=== PATIENT | male | born 1965 | race Caucasian/White ===

== ENCOUNTER 2021-03-29 18:40 | Observation (INO) | payer OTHER ==
[~2021-03-29] VITALS: Ht 177.8 cm; Wt 127.0 kg
--- NOTE | ~2021-03-29 | EMS ---
[address] [address] EMS Patient Care Report Name: FORTUNATO PEREZ Room #: 170-5 ADM IN M.R.#: [id number] Admission: 03/29/21 Attend Phys: Cory Payne MD Discharge: Date of : 63 Report #: [id number] THIS REPORT FOR: //name// Report Transmitted: 03/29/2021 19:46 EMS Care Summary [facility] Incident [id number] @ 03/29/2021 17:27 Incident Location [address] [place] [address] Patient FORTUNATO PEREZ Male, 55 Years 1965 Patient Address [address] [place] [address] Patient History Hypertension (HTN),Edema,Back Pain (Chronic),Back Surgery, Patient Allergies No known allergies, Patient Medications Spironolactone, Hydrochlorothiazide (Hctz), Cyclobenzaprine, Potassium, Lasix, Metoprolol, Chief Complaint Right hip pain Disposition Transported No Lights/Champion Dispatch Reason Falls Transported To [facility] Narrative C - Right lateral hip discomfort. H - [id number] was dispatched to a local residences on a C1 fall. [id number] arrived on [facility] [address] [place] [address] EMS Patient Care Report Name: FORTUNATO PEREZ Room #: 170-5 ADM IN M.Juan.#: [id number] Admission: 03/29/21 Attend Phys: Cory Payne MD Discharge: Date of : 63 Report #: [id number] scene to find Mr. Perez a 55 y/o male patient found lying on his left side in a narrow hallway. Mr. Perez was found in [facility] and able to speak in full and complete sentences upon our arrival. The patient had complaint of severe right hip pain after an incident while walking down the [place]. Mr. Perez reported that he got up and was walking down the [place] when he felt his right hip (femoral head) pop out and caused him to fall. The patient denied any other associated injury which includes neck, back, or head injuries, and he also denied any loss of consciousness due to this event. The patient was able to rate his discomfort at an 8 initially and reported that it would go to a 10/10 with any movement or palpation. The patient reported that he has an extensive back and neuropathy hx. but this event did not worsen any of his numbness or tingling. Ms. Perez denied any previous injury to his hip or leg, and he also denied any previous hip surgeries. The patient denied any other recent illness or injury. R - Initial assessment, physical examination, V/s, IV access, Fentanyl administration, pt. rolled onto the tarp and moved to stretcher, V/s, Fentanyl administration, continued reassessment. T - The patient reported a large relief in his pain management during transport. No change was noted in the patient's V/s or presentation during transport. The patient was moved over into bed in ED via sheet drag without incident with report given to ED RN. Initial Vitals @18:22P: 95,SpO2: 90, @18:11P: 94,R: 14,BP: 130/86,Pain: 5/10,GCS: 15,SpO2: 94,Revised Trauma: 12, @18:26P: 92,R: 15,BP: 101/44,Pain: 3/10,GCS: 15,SpO2: 93,Revised Trauma: 12, @PTAP: 92,R: 18,BP: 99/68,Pain: 8/10,GCS: 15,Temp: 98.3F,SpO2: 94,Revised Trauma: 12, Impression Injury of Hip Procedures @18:14 Fentanyl - 100 Micrograms (mcg) - Intravenous (IV) Response: Improved @17:58 Fentanyl - 100 Micrograms (mcg) - Intravenous (IV) Response: Improved @17:53 IV Therapy - Saline Lock 0cc (20 ga) Site: Antecubital-Right Response: UnchangedFailed @17:58 IV Therapy - Saline Lock 10cc (22 ga) Site: Hand-Left Response: UnchangedSucceeded @18:16 Surgical Mask on Patient Response: Unchanged Timeline [address] [address] EMS Patient Care Report Name: FORTUNATO PEREZ Room #: 170-5 ADM IN M.R.#: [id number] Admission: 03/29/21 Attend Phys: Cory Payne MD Discharge: Date of : 63 Report #: [id number] FRONT DESK AGENT,BP: 99/68 M,PULSE: 92,RR: 18 R,SPO2: 94 Ox,ETCO2: ,BG: ,PAIN: 8,GCS: 15, 17:25,Call Received 17:25,Psap Call 17:27,Dispatched 17:27,En Route 17:40,On Scene 17:41,At Patient 17:53,IV Therapy - Saline Lock 0cc 20 ga Site: Antecubital-Right,Response: UnchangedFailed, 17:58,Fentanyl - 100 Micrograms (mcg) - Intravenous (IV),Response: Improved 17:58,IV Therapy - Saline Lock 10cc 22 ga Site: Hand-Left,Response: UnchangedSucceeded, 18:11,BP: 130/86 M,PULSE: 94,RR: 14 R,SPO2: 94 Ox,ETCO2: ,BG: ,PAIN: 5,GCS: 15, 18:14,Fentanyl - 100 Micrograms (mcg) - Intravenous (IV),Response: Improved 18:16,Surgical Mask on Patient,Response: Unchanged 18:20,Depart Scene 18:22,BP: / M,PULSE: 95,RR: R,SPO2: 90 Ox,ETCO2: ,BG: ,PAIN: ,GCS: , 18:26,BP: 101/44 M,PULSE: 92,RR: 15 R,SPO2: 93 Ox,ETCO2: ,BG: ,PAIN: 3,GCS: 15, 18:34,At Destination 18:51,Call Closed Disclaimer v1.1 Copyright 2020 [employer] This EMS Care Summary contains data elements from the applicable legal record (which may be displayed differently). It is designed to provide pertinent information for the following purposes: continuity of care, clinical quality, and state data reporting. The complete legal record is available to ED staff and administrators of the receiving hospital in [employer]'s Patient Tracker. All data is provided "as is."
[2021-03-29 18:49] VITALS: BP 104/74
[2021-03-29 20:41] LABS: ABSOLUTE NEUTROPHILS 9.3 thou/uL (1.4-8.2); BASOPHILS 0.5 % (0.0-2.0); EOSINOPHILS 1.5 % (0.0-3.0); HEMOGLOBIN 13.7 gm/dL (14.0-18.0); LYMPHOCYTES 10.3 % (24.0-44.0); MCH 28.2 pg (26.0-34.0); MCHC 32.7 g/dL (28.0-37.0); MCV 86.1 fL (80.0-100.0); MONOCYTES 7.1 % (1.0-8.0); PLATELET COUNT 232 thou/uL (150-400); POLYS 80.6 % (36.0-66.0); RBC 4.87 mil/uL (4.50-6.00); RDW 16.3 % (10.5-14.5); WBC 11.5 thou/uL (4.0-11.0)
[2021-03-29 20:49] LABS: CALCIUM 8.6 mg/dL (8.5-10.1); CREATININE 0.8 mg/dL (0.7-1.3)
[2021-03-29 20:55] LABS: ALBUMIN 2.8 g/dL (3.4-5.0); TOTAL PROTEIN 6.6 g/dL (6.4-8.2)
[2021-03-29 21:20] LABS: INR 0.99; PROTIME 10.8 Seconds (10.5-12.1)
--- NOTE | 2021-03-30 04:02 | NUR ---
DR. BETTS PAGED X2 AT 0230 AND 0304 WITH NO RETURN CALL. PAGED AGAIN AT THIS TIME. PT NEEDS PAIN MEDS.
[2021-03-30] MEDS ORDERED: MS CONTIN 30 MG30 M1 PO (04:04)
[2021-03-30] MEDS ORDERED: SPIRONOLACTONE25 MG PO (04:04)
[2021-03-30] MEDS ORDERED: NORVASC10 MG PO (04:05)
[2021-03-30] MEDS ORDERED: OXYCODONE HCL10 MG PO (04:05)
[2021-03-30] MEDS ORDERED: TRELEGY ELLIPT1 EAC1 PO (04:06)
[2021-03-30] MEDS ORDERED: METOPROLOL SUC100 MG PO (05:04)
[2021-03-30] MEDS ORDERED: LASIX 40 MG TAB40 MG PO (05:04)
[2021-03-30] MEDS ORDERED: FLEXERIL PO ×2 (05:06→05:17)
[2021-03-30] MEDS ORDERED: FUROSEMIDE 40 M40 MG PO (05:17)
--- NOTE | 2021-03-30 12:34 | NUR ---
[facility] by [facility] charge nurse. [facility] is full but we can check back at 3pm, [facility] full today but indicates they do have a surgical ortho oncologist and to try back tomorrow. [facility] to [facility], [facility], and [facility]. CM called [facility] and left a message, Preet OVIEDO and left a message, [facility] declined, and [facility] will need to call back.
[2021-03-30 21:00] VITALS: BP 118/80
== END 2021-03-30 21:02 | disposition short-term general hospital (02) ==
LOC: ER 18:40 → EROBS 20:29
PROVIDERS: Emergency Medicine; ADMIT Surgery; ATTEND Surgery
DX: M84.451A Pathological fracture, right femur, initial encounter for fracture (principal); Z20.822 Contact with and (suspected) exposure to COVID-19; C76.3 Malignant neoplasm of pelvis; I10 Essential (primary) hypertension; E11.9 Type 2 diabetes mellitus without complications; Z79.84 Long term (current) use of oral hypoglycemic drugs; Z79.899 Other long term (current) drug therapy